=== PATIENT | male | born 1965 | race Hispanic/Latino ===

== ENCOUNTER → 2018-06-17 | Outpatient (CLI) | payer OTHER ==
--- NOTE | 2018-06-17 13:22 | Diagnostic Imaging Report ---
Exam: KUB-2 views Clinical History: Abdominal pain. Comparison: None. Findings: There is a nonobstructive bowel gas pattern. There is no evidence of free intraperitoneal air. There are no abnormal calcifications. The bony structures are unremarkable. Impression: No acute radiographic abnormality. Signed by: Dr. Tangela Benitez MD on 06/17/2018 1:19 PM
== END ==
LOC: RAD 11:19
PROVIDERS: ATTEND Family Medicine
DX: R10.84 Generalized abdominal pain (principal)
CPT/HCPCS: 74018

== ENCOUNTER → 2018-06-21 | Outpatient (CLI) | payer OTHER ==
--- NOTE | 2018-06-21 11:11 | Diagnostic Imaging Report ---
Exam: Abdominal film Clinical History: Abdominal pain Comparison: None. DISCUSSION: The bowel gas pattern shows no dilated, air-filled loops of bowel. No abnormal abdominal mass effect or organomegaly. Round pelvic calcifications likely representing phleboliths. Regional skeletal structures are intact. IMPRESSION: Nonobstructive bowel gas pattern. Signed by: Dr. Edvin Llanos M.D. on 06/21/2018 11:07 AM
--- NOTE | 2018-06-21 11:19 | Diagnostic Imaging Report ---
EXAM: US ABDOMEN COMPLETE DATE: 06/21/2018 10:01 AM INDICATION: Abdominal pain COMPARISON: None TECHNIQUE: Transverse and longitudinal wall scale and color doppler sonographic images of the upper abdomen were obtained. FINDINGS: LIVER 15.5 cm in the right midclavicular line. Normal echogenicity, normal contour, no masses. SPLEEN 9.5 cm in maximum diameter. Normal echogenicity, no masses. GALLBLADDER No stones, sludge, wall-thickening or pericholecystic fluid. Negative sonographic Sotomayor's sign. BILE DUCTS No intra nor extra-hepatic biliary dilation. Common bile duct measures 0.2 cm PANCREAS: Visualized portions are normal. RIGHT KIDNEY: 10 cm Echogenicity: Normal Collecting System: No hydronephrosis Stones: None Cyst/Mass: None LEFT KIDNEY: 10 cm Echogenicity: Normal Collecting System: No hydronephrosis Stones: None Cyst/Mass: None VESSELS: Aorta: Nonaneurysmal Inferior Vena Cava: Patent Main Portal Vein: 0.9 cm, normal size with hepatopetal flow. FREE FLUID: None Limited sonographic imaging of the area of clinical concern in the left lower quadrant was performed, which shows no gross mass lesion or fluid collection. IMPRESSION: Unremarkable abdominal ultrasound. Signed by: Dr. Edvin Llanos M.D. on 06/21/2018 11:15 AM
== END ==
LOC: MERGE 09:48 → US 09:48
PROVIDERS: ATTEND Family Medicine
DX: R10.84 Generalized abdominal pain (principal)
CPT/HCPCS: 74018; 76700